=== PATIENT | male | born 1970 | race Two or more races ===

== ENCOUNTER 2021-05-31 19:42 | Emergency (ER) | payer BC ==
[~2021-05-31] VITALS: Ht 175.3 cm; Wt 84.4 kg
[2021-05-31 19:42] VITALS: BP 162/106
--- NOTE | 2021-05-31 20:13 | NUR ---
EMT AT BEDSIDE FOR EKG
--- NOTE | 2021-05-31 20:13 | NUR ---
REFUSED ACCU CHECK
[2021-05-31] MEDS ORDERED: chlorproMAZINE HCL 25 MG TABLET ONE (20:26)
[2021-05-31] MEDS ORDERED: chlorproMAZINE HCL 25 MG TABLET PO ONE (20:30)
[2021-05-31] MEDS ORDERED: CHLO25TA13 GT (20:35)
== END 2021-05-31 20:53 | disposition home or self-care (01) ==
LOC: ER 19:52
DX: R06.6 Hiccough (principal); R94.31 Abnormal electrocardiogram [ECG] [EKG]
CPT/HCPCS: 82962; 93005; 99283; J3230; Q0161